=== PATIENT | male | born 1940 | race Caucasian/White ===

== ENCOUNTER 2019-01-20 18:21 | Observation (INO) ==
[2019-01-20 19:20] LABS: ALLEN TEST YES; BE 0.2 mmoll (-3.0-3.0); BLOOD TYPE ARTERIAL; METHB 0.9 % (0.0-1.5); O2(CT) 15.4 mL/dL (15.0-23.0); O2HB 92.5 % (95.0-99.0); PCO2(98.6) 29 mmHg (35-45); PO2(98.6) 86 mmHg (60-100); SAMPLE BLOOD; SAO2 98.3 % (95.0-100.0); THB 11.8 g/dL (11.5-17.4)
[2019-01-20 19:21] LABS: MODALITY ROOM AIR
--- NOTE | 2019-01-20 19:45 | Diag Imaging Result Doc PS360 ---
CHEST-PORTABLE - 01/20/2019 INDICATION: ams COMPARISON: 12/17/2017 FINDINGS: Stable sternotomy wires. Stable calcified granuloma in the right lung. The lungs are clear. Heart size is normal. No pneumothorax or pleural effusion. IMPRESSION: Negative exam. Electronically signed by Rex Nance 01/20/2019 7:42 PM
--- NOTE | 2019-01-20 19:48 | Diag Imaging Result Doc PS360 ---
CT HEAD W/O CONTRAST - 01/20/2019 INDICATION: Head injury COMPARISON: 08/10/2013 FINDINGS: There is a new chronic lacunar in the right periventricular cerebral white matter. The ventricles and sulci are normal in size and contour. No intracranial mass or hemorrhage. The skull is intact. The sinuses, mastoids, and middle ears are clear. IMPRESSION: Increasing mild chronic stroke burden. No acute process. This exam was performed using automated exposure control, adjustment of mA or kV according to patient size, and/or use of iterative reconstruction technique Electronically signed by Rex Nance 01/20/2019 7:46 PM
[2019-01-20] MEDS ORDERED: NS 1,000 ML IV ONE (20:14)
[2019-01-20 20:49] LABS: URINE SOURCE CLEAN CATCH
[2019-01-20 20:57] LABS: BILIRUBIN URINE NEGATIVE (NEGATIVE); BLOOD URINE NEGATIVE (NEGATIVE); COLOR YELLOW; GLUCOSE URINE NEGATIVE (NEGATIVE); KETONE URINE TRACE mg/dL (NEGATIVE); LEUKOCYTES URINE NEGATIVE (NEGATIVE); NITRITE URINE NEGATIVE (NEGATIVE); PH URINE 8.5; PROTEIN URINE 50 mg/dL (NEGATIVE); SP GRAVITY URINE 1.017; TURBIDITY URINE HAZY (CLEAR); UROBILINOGEN URINE NORMAL (NORMAL)
[2019-01-20 20:58] LABS: BASO# 0.06 X1000 (0.0-0.2); BASO% 0.7 % (0.0-0.8); EOS# 0.43 X1000 (0.0-0.7); EOS% 5.3 % (0.0-10.0); HEMATOCRIT 38.4 % (42.0-52.0); HEMOGLOBIN 12.5 g/dL (14.0-18.0); LYMPH# 1.48 X1000 (1.2-3.4); LYMPH% 18.3 % (20.5-51.1); MCH 28.3 PG (27-31); MCHC 32.6 g/dL (33-37); MCV 86.9 FL (81-99); MONO# 0.67 X1000 (0.11-0.59); MONO% 8.3 % (1.7-9.3); MPV 10.9 FL (7.4-10.4); NEUT# 5.43 X1000 (1.4-6.5); NEUT% 67.4 % (42.2-75.2); PLT 335 X1000 (130-400); RBC 4.42 XMIL (4.7-6.1); RDW 14.2 % (11.5-14.5); UR EPITHELIAL CELLS <10 /HPF (<10); URINE BACTERIA NEGATIVE /HPF; URINE RBC <10 /HPF (<10); URINE WBC <10 /HPF (<10); WBC 8.07 X1000 (4.8-10.8)
[2019-01-20 21:02] LABS: INR 0.94; PROTIME 13.3 Seconds (11.0-16.0)
[2019-01-20 21:03] LABS: PTT 35.7 Seconds (22.3-41.8)
[2019-01-20 21:29] LABS: AGAP 15; ALBUMIN 4.3 g/dL (3.5-5.0); ALKALINE PHOSPHATASE 128 U/L (32-122); BUN 15 mg/dL (8-22); CALCIUM 9.8 mg/dL (8.8-10.2); CHLORIDE 101 mmol/L (98-107); CK PROFILE 110 U/L (24-204); COSMO 281; CREATININE 0.8 mg/dL (0.7-1.2); ESTIMATED GFR > 60; GLUCOSE 118 mg/dL (70-104); GOT 28 U/L (10-34); GPT 17 U/L (10-44); POTASSIUM 3.8 mmol/L (3.5-5.1); SODIUM 140 mmol/L (136-145); TCO2 24 mmol/L (25-35); TOTAL BILIRUBIN 0.34 mg/dL (0.20-1.00); TOTAL PROTEIN 8.6 g/dL (6.3-8.3)
[2019-01-20 22:29] LABS: UR AMPHETAMINES QUAL NONE DETECTED (NONE DETECT); UR BARBITUATES QUAL NONE DETECTED (NONE DETECT); UR BENZODIAZEPIN QUAL NONE DETECTED (NONE DETECT); UR CANNABINOIDS QUAL NONE DETECTED (NONE DETECT); UR COCAINE QUAL NONE DETECTED (NONE DETECT); UR METHADONE QUAL NONE DETECTED (NONE DETECT); UR OPIATES QUAL NONE DETECTED (NONE DETECT); UR OXYCODONE QUAL NONE DETECTED (NONE DETECT); UR PCP QUAL NONE DETECTED (NONE DETECT)
--- NOTE | 2019-01-20 23:37 | PROVIDER DOCUMENTATION ---
This chart was entered by Julieta Castle Scribe, acting as scribe for Kely Fox MD. HPI-General Adult - General Chief Complaint: Altered Mental Status Stated Complaint: POSS STROKE Time Seen by Provider: 01/20/19 18:42 Source: patient Allergies/Adverse Reactions: Patient Allergies Allergy/AdvReac Type Severity Reaction Status Date / Time codeine AdvReac Severe VOMITING Verified 05/06/18 02:49 lisinopril AdvReac Severe lowers BP Verified 05/06/18 02:49 to low Home Medications: Home Medication List Medication Instructions Recorded Confirmed Last Taken Type Cyanocobalamin (Vitamin B-12) 1,000 mcg PO DAILY 08/10/13 05/06/18 05/05/18 H istory [Vitamin B-12] Cyclobenzaprine HCl [Flexeril] 10 mg PO TID PRN 08/10/13 05/06/18 05/05/18 History Digoxin 0.25 mg PO DAILY 08/10/13 05/06/18 05/05/18 History Gabapentin 1,200 mg PO BID 08/10/13 05/06/18 05/05/18 History Levothyroxine [Synthroid] 175 microgm PO DAILY 08/10/13 05/06/18 05/05/18 History Omeprazole 40 mg PO BID 08/10/13 05/06/18 05/05/18 History ATORVAstatin [Lipitor] 40 mg PO QHS 09/06/17 05/06/18 05/05/18 History Albuterol Sulfate [Proair Hfa] 1 puff INH DIRECTED 09/06/17 02/14/18 09/06/17 History Amlodipine Besylate 10 mg PO DAILY 09/06/17 05/06/18 05/05/18 History Aspirin [Aspir-Low] 81 mg PO DAILY 09/06/17 05/06/18 05/05/18 History Carvedilol [Coreg] 6.25 mg PO BID 09/06/17 05/06/18 05/05/18 History Furosemide [Lasix] 40 mg PO DAILY 09/06/17 05/06/18 05/05/18 History Glipizide 10 mg PO BID 09/06/17 05/06/18 05/05/18 History Iron 45 mg PO DAILY 09/06/17 05/06/18 05/05/18 History Isosorbide Dinitrate 20 mg PO BID 09/06/17 05/06/18 05/05/18 History Metformin HCl 1,000 mg PO BID 09/06/17 05/06/18 05/05/18 History Multivitamin [Multivitamins] 1 each PO DAILY 09/06/17 05/06/18 05/05/18 History Sennosides/Docusate Sodium 1 each PO DIRECTED PRN 09/06/17 05/06/18 05/05/18 History [Docusate Sodium-Senna Tablet] Apixaban [Eliquis] 5 mg PO BID #180 tab 09/10/17 05/06/18 05/05/18 Rx Clonazepam 0.5 mg PO QHS #30 tab 09/10/17 05/06/18 05/05/18 Rx Fluticasone/Vilanterol [Breo 1 puff INH DAILY 12/16/17 05/06/18 05/05/18 History Ellipta 100-25 Mcg INH] Albuterol 2.5MG/Ipratrop 0.5MG 3 ml INH RTQ4H PRN #30 neb 12/19/17 02/14/18 Unknown Rx [Duoneb (A & A)] Ascorbic Acid [Vitamin C] 1 tab PO DAILY 05/06/18 05/06/18 05/05/18 History Buspirone [Buspar] 1 tab PO BID 05/06/18 05/06/18 05/05/18 History Venlafaxine HCl [Venlafaxine HCl 300 mg PO DAILY 05/06/18 05/06/18 05/05/18 History ER] Hydrocodone/Acetaminophen [[place] 1 ea PO Q6H #30 tab 05/08/18 Unknown Rx 7.5-325 Tablet] Lidocaine 5% Patch [Lidoderm] 1 ea TOP DAILY #15 patch 05/08/18 Unknown Rx - History of Present Illness -Gen Adult Nature of Presenting Problems: pt is a 78 yr old male presenting with , reports 1 week hx of pt cough, congestion, AMS, hallucinating. pt reports he sees bugs crawling under his skin. reports pt has picked and clawed at skin causing multiple open sores to left forearm and hand, wound covered PATIENT ACCESS COORDINATOR by , she reports they have been cleaning and covering wounds so pt would stop scratching them open. pt hx of CVA, CABG. 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 pt currently treating wound to left great toe x 1 month, slow healing wound. Location of Pain/Injury: reports: upper extremity (right forearm), feet (left great toe) Pain Radiation: reports: no radiation Severity: reports: moderate Onset/Duration: reports: 1 week ago Timing: reports: changing over time, getting worse Context/Activities at Onset: reports: light activity Modifying Factors: improves with: other (bandages applied to prevent pt from scratching wounds open) Associated Symptoms: reports: other (skin sores, hallucinations). denies: fever/chills, genitourinary problems Similar Symptoms Previously?: No Recently seen or treated by another doctor?: No Review of Systems - Adult - REVIEW OF SYSTEMS - ADULT Constitutional: denies: chills, fever, fatique Eyes: reports: no symptoms reported Ears, Nose, Mouth & Throat: denies: ear pain, sinus problem, throat pain Cardiovascular: denies: chest pain, palpitations, syncope Respiratory: reports: cough. denies: dyspnea on exertion, shortness of breath, wheezing Gastrointestinal: denies: abdominal pain, diarrhea, nausea, vomiting Genitourinary: reports: frequent UTI's Musculoskeletal: denies: back pain, joint pain, neck pain Integumentary: reports: skin sores/ulcer Neurological: denies: dizziness/vertigo, headache/migraines Psychiatric: reports: other (hallucinations) Endocrine: reports: no symptoms reported Hematologic/Lymphatic: reports: no symptoms reported Allergic/Immunologic: reports: no symptoms reported All Other Systems: Reviewed and Negative Past History - Adult - PAST MEDICAL HISTORY-ADULT Review of Records: reports: Old Records Reviewed, Nursing Assessment Review, Medications Reviewed, Social history reviewed & non-contributory. Major Childhood Illnesses: reports: denies history Cardiovascular: reports: A-Fib, CAD, HTN, ID Respiratory: reports: denies history Gastrointestinal: reports: GERD Obstetrical/Gynecological: reports: denies history Genitourinary: reports: denies history Musculoskeletal: reports: chronic pain Neurological: reports: CVA, other (Neuropathy) Endocrine/Immune: reports: anemia, Diabetes, thyroid disorder (Hypo) Other Conditions: reports: denies history - PRIOR SURGERIES/PROCEDURES Surgical/Procedure History: reports: appendectomy, CABG, cardiac stent, back/neck - PRIOR HOSPITALIZATIONS Prior Hospitalizations: reports: for similar symptoms - IMMUNIZATION STATUS Childhood Immunizations: See Nurse Assessment Flu Vaccine: See Nurse Assessment - FAMILY HISTORY Family History: reviewed, not pertinent - SOCIAL HISTORY Smoking: cigarettes Provider spent 3-5 mins advising pt. on dangers of tobacco.: Discussed manners to quit use, and f/u contacts for add'l counseling. Living Situation: family Physical Exam-General - PHYSICAL EXAM-ADULT Initial Vital Signs Reviewed: Yes - CONSTITUTIONAL General Appearance: alert, no apparent distress - EYES Eyes: PERRL/EOMI - HEAD, EARS, NOSE, MOUTH & THROAT HENMT: normocephalic/atraumatic, moist mucous membranes, normal ENT inspection - NECK Neck: non-tender, full range of motion, supple, normal inspection - RESPIRATORY Respiratory: chest non-tender, no pleuratic chest pain, no respiratory distress, no accessory muscle use, crackles (left base) - CARDIOVASCULAR Cardiovascular: normal peripheral pulses, regular rate, rhythm, no edema - GASTROINTESTINAL (ABDOMEN) Abdominal Exam: normal bowel sounds, non tender, soft - LYMPHATIC Lymphatic: no adenopathy - MUSCULOSKELETAL Back Exam: normal inspection, no CVA tenderness, no vertebral tenderness Extremity: normal range of motion, no pedal edema, no calf tenderness, normal capillary refill Peripheral Pulses: radial (R): 2+, radial (L): 2+ - SKIN Integumentary: normal color, normal turgor, warm/dry - PSYCHIATRIC Psych/Mental Status: paranoid Progress - PLAN OF CARE/RESULTS Progress/Plan/Lab Results: Vital Signs - 8 hr 01/20/19 18:36 Temperature 97.4 F L Pulse Rate 73 Respiratory Rate 18 Blood Pressure 210/82 O2 Sat by Pulse Oximetry 98 Orders Category Date Time Status Cardiac Monitoring DIRECTED Care 01/20/19 18:56 Active Finger Stick Blood Sugar (ED) DIRECTED Care 01/20/19 18:56 Active Oxygen Therapy- ED Nursing DIRECTED Care 01/20/19 18:56 Active Saline Loc NOW Care 01/20/19 18:56 Active CHEST-PORTABLE [RAD] Stat Exams 01/20/19 18:[address] HEAD W/O CONTRAST [CT] Stat Exams 01/20/19 18:56 Ordered ABG [RESP] Routine Lab 01/20/19 18:56 Ordered CBC WITH ELECTRONIC DIFF [HEME] Stat Lab 01/20/19 18:56 Uncollected CK PROFILE [SP CHEM] Stat Lab 01/20/19 18:56 Uncollected COMPREHENSIVE METABOLIC PANEL [CHEM] Stat Lab 01/20/19 18:56 Uncollected LACTATE, PLASMA [CHEM] Stat Lab 01/20/19 18:56 Uncollected PROTIME WITH INR [COAG] Stat Lab 01/20/19 18:56 Uncollected PTT [COAG] Stat Lab 01/20/19 18:56 Uncollected TROPONIN T Stat Lab 01/20/19 18:56 Uncollected URINALYSIS [URINALYSIS] Stat Lab 01/20/19 18:56 Uncollected Altered Mental Status Stat Oth 01/20/19 18:55 Ordered EKG [EKG] Stat Ther 01/20/19 18:56 Ordered Result Diagrams: 01/20/19 20:31 01/20/19 20:31 - EKG 1 Time of EKG reading by physician:: 18:50 EKG Read and Signed by:: Kely Fox EKG Interpretation (*Must complete 3 of following elements*): Abnormal (septal infarct-age undetermined) Rate: 95 Rhythm: sinus rhythm with premature supraventricular complexes [place]: normal QRS: normal [place] Interval: normal ST Wave: normal - XRAY 1 XRAY Study: Chest Impression: Normal ( CHEST-PORTABLE - 01/20/2019 INDICATION: ams COMPARISON: 12/17/2017 FINDINGS: Stable sternotomy wires. Stable calcified granuloma in the right lung. The lungs are clear. Heart size is normal. No pneumothorax or pleural effusion. IMPRESSION: Negative exam. Electronically signed by Rex Nance 01/20/2019 7:42 PM 01/20/191941 Interpreting Physician: Rex Nance MD Dictated Date/Time: 01/20/191941) - CT/MRI 1 CT Study: Head Impression: Abnormal ( CT HEAD W/O CONTRAST - 01/20/2019 INDICATION: Head injury COMPARISON: 08/10/2013 FINDINGS: There is a new chronic lacunar in the right periventricular cerebral white matter. The ventricles and sulci are normal in size and contour. No intracranial mass or hemorrhage. The skull is intact. The sinuses, mastoids, and middle ears are clear. IMPRESSION: Increasing mild chronic stroke burden. No acute process. This exam was performed using automated exposure control, adjustment of mA or kV according to patient size, and/or use of iterative reconstruction technique Electronically signed by Rex Nance 01/20/2019 7:46 PM 01/20/191945 Interpreting Physician: Rex Nance MD Dictated Date/Time: 01/20/191944 cc: Kely Fox MD;) Comparison with other Films: changes noted (08/10/13) - CONSULTS/PCP/HOSPITALIST Notification #1 *Consult/PCP/Hospitalist*: dr. Goff Time Discussed: 23:35 Consult Disposition: Will see in ED Departure - Departure Date of Disposition Decision: 01/20/19 Time of Disposition Decision: 23:35 DIAGNOSIS: Visual hallucination Disposition: ADMITTED INPATIENT 09 Certified Medical Emergency: Emergent Condition: Stable - Critical Care Note This patient required my direct & personal management of CC.: No Attestation - Physician/ SHAKEEL Attestation The physician spent face to face time with patient:: Yes Advanced Practice Provider documentation review:: Supervising physician onsite and consulted in the evaluation and care of this patient. The physician did have a face to face encounter with the patient. This chart was documented by the indicated scribe, (Julieta Castle, Aline) and accurately reflects the services I performed and decisions made by me, Kely Fox MD, as attested by the provider's signature.
[2019-01-20 23:50] LABS: ACETAMINOPHEN < 1.2 ug/mL (10-30); SALICYLATES < 3.00 mg/dL (3-10)
--- NOTE | 2019-01-21 01:36 | HISTORY AND PHYSICAL ---
PRIMARY CARE PHYSICIAN: At the [facility]. CHIEF COMPLAINT: Having visual hallucinations, seeing bugs crawling. HISTORY OF PRESENTING ILLNESS: A 78-year-old male with a history of CVA, hypertension, coronary artery disease, diabetes mellitus type 2, depression, who had presented to emergency department with several days history of seeing bugs crawling on himself and becoming more confused. As per family, his symptoms were worsening. The patient was evaluated in the emergency department, he had imaging done, which did show on CAT scan an increase in mild chronic stroke burden. Due to these presenting symptoms it was thought that he would need admission for further management. At the time of my examination, patient denied any headache, fever, chills, chest pain, shortness of breath, hemoptysis, or weight changes. Just states that he is seeing things crawling on himself. PAST MEDICAL HISTORY: Includes coronary artery disease, diabetes mellitus type 2, hypertension, hyperlipidemia, COPD, depression, CVA. PAST SURGICAL HISTORY: Coronary bypass, back surgery, neck surgery, appendectomy, carotid endarterectomy, right 5th toe amputation. ALLERGIES: Lisinopril, codeine. CURRENT MEDICATIONS: Duo nebs q.4 hours, Norvasc 10 mg p.o. daily, Eliquis 5 mg p.o. b.i.d., aspirin 81 mg p.o. daily, atorvastatin 40 mg p.o. at bedtime, buspirone 10 mg p.o. b.i.d., Coreg 6.25 mg p.o. b.i.d., Klonopin 0.5 mg p.o. at bedtime, digoxin 0.25 mg p.o. daily, Lasix 40 mg p.o. daily, gabapentin 1200 mg p.o. b.i.d., glipizide 10 mg p.o. b.i.d., isosorbide dinitrate 20 mg p.o. b.i.d., levothyroxine 175 mcg p.o. daily, metformin 1000 mg p.o. b.i.d., omeprazole 40 mg p.o. b.i.d., venlafaxine 300 mg p.o. daily. SOCIAL HISTORY: A [id number] history of smoking. Denies any history of alcohol or illicit drug use. FAMILY HISTORY: Positive for coronary artery disease in father. REVIEW OF SYSTEMS: Fourteen point review of system is as in HPI. Other systems negative. PHYSICAL EXAMINATION: GENERAL: Cooperative, friendly male, he is resting more comfortably now. VITAL SIGNS: Temperature 97.4 degrees, pulse 73, respiration 18, blood pressure 210/82. HEENT: Atraumatic, normocephalic. Extraocular movements intact. PERRLA. NECK: No masses. CHEST: Clear to auscultation. CARDIOVASCULAR: Regular rate and rhythm. ABDOMEN: Soft. Positive bowel sounds. EXTREMITIES: No edema. NEUROLOGIC: He is awake, alert, oriented x2. Strength 5/5 all extremities. Speech is intact. GENITOURINARY: No bladder distention. SKIN: Warm. LABORATORIES AND STUDIES: WBCs 8.07, hemoglobin 12.5, hematocrit 38.4, platelets 335,000. Sodium 140, potassium 3.8, chloride 101, CO2 is 24, BUN is 15, creatinine 0.8. Glucose 118. UA is negative. Toxicology screen is negative. ASSESSMENT: A 78-year-old male with a history of a cerebrovascular accident, diabetes mellitus type 2, hypertension, hyperlipidemia, chronic obstructive pulmonary disease, and depression, who had presented to the emergency department with several days history of having visual hallucination, especially noticing bugs crawling underneath his skin. He was evaluated in the emergency department, and due to his presenting symptoms, he will need admission for further evaluation and management. 1. Altered mental status, multifactorial. 2. Visual hallucinations in setting of previous cerebrovascular accident and recent CT findings that we will need to rule out cerebrovascular accident, recurrent. 3. Depression. 4. Dementia. 5. Diabetes mellitus type 2. 6. Hypertension. PLAN: 1. We will admit patient to medical floor with telemetry. 2. We will continue with neuro checks. 3. We will schedule patient for MRI of the brain. 4. We will restart other home medications. 5. We will monitor blood glucose closely. 6. We will monitor blood pressure and allow permissive hypertension. 7. Patient is on Eliquis and this will suffice for DVT prophylaxis. 8. We will continue to follow and reassess. Make further recommendation based on patient's clinical course. cc: MD YANY Persaud
[2019-01-21] MEDS ORDERED: NS 1,000 ML IV SCH (02:22)
[2019-01-21] MEDS: DUONEB (A & A) INH PRN ×3 (03:40→11:24)
[2019-01-21] MEDS: HUMULIN R SUBQ SCH ×2 (06:13→12:22)
--- NOTE | 2019-01-21 07:19 | EKG Report ---
Test Performed on : 01/20/2019 6:49:13 PM Test Reason : ams Blood Pressure : / mmHG Vent. Rate : 095 BPM Atrial Rate : 095 BPM P-R Int : 190 ms QRS Dur : 090 ms QT Int : 352 ms P-R-T Axes : 082 -07 099 degrees QTc Int : 442 ms Sinus rhythm. with premature supraventricular complexes. Septal infarct , age undetermined Abnormal ECG When compared with ECG of 06-MAY-2018 06:08, Sinus rhythm. has replaced Atrial fibrillation. Left bundle branch block is no longer present Septal infarct is now present Unconfirmed Result
[2019-01-21] MEDS ORDERED: ISORDIL PO SCH (09:00)
[2019-01-21] MEDS ORDERED: CENTRUM SILVER PO SCH (09:00)
[2019-01-21] MEDS ORDERED: PERICOLACE PO PRN (10:40)
--- NOTE | 2019-01-21 11:07 | PROGRESS NOTE ---
DATE: 01/21/2019 Mr. Vo presented on 01/21/2019 in the morning. He was seen at the [facility]. He was having visual hallucinations, seeing bugs crawling on his arms and picking at them. A 78- year-old with a history of CVA, hypertension, coronary artery disease, diabetes mellitus type 2, depression. Presented to the emergency department with a several day history of seeing bugs crawling on himself, becoming more confused. As per family, his symptoms were worsening. Evaluated in the emergency room. Imaging done, CAT scan which showed an increase in microvascular chronic stroke burden. Due to the presenting symptoms, he was admitted. states he is a little better, although he still picking at his arms and rubbing his arms. He has several sores at the back of his neck and on his arm where he has picked. PAST MEDICAL HISTORY: History of coronary artery disease, history of diabetes mellitus type 2, history of hypertension, history of hyperlipidemia, COPD, depression, and CVA. PAST SURGICAL HISTORY: Coronary artery disease, back surgery, neck surgery, appendectomy, carotid endarterectomy, right fifth toe amputation. ALLERGIES: Lisinopril and clonidine. ADMISSION DIAGNOSES: 1. Altered mental status, multifactorial. 2. He has a history of cerebrovascular accident. 3. Underlying diabetes. 4. Hypertension. 5. Hyperlipidemia. 6. Chronic obstructive pulmonary disease. 7. Depression. 8. Having visual hallucinations. He is sitting up at the edge of the bed. states he is a little better but still picking at his arms. MEDICATIONS: Looking at his medications at home, he was on Lipitor 40 mg a day, DuoNebs, amlodipine 10 mg a day, Eliquis 5 mg b.i.d., ascorbic acid 1 a day, aspirin 81 mg a day, BuSpar 1 p.o. b.i.d., Coreg 6.25 mg b.i.d., Klonopin 0.5 mg at bedtime, vitamin B12 with 1000 mg a day, Flexeril 10 mg t.i.d. p.r.n., digoxin 0.25 mg daily, Breo Ellipta 100/25 one puff daily, Lasix 40 mg a day, gabapentin which he takes 1200 mg p.o. b.i.d., glipizide 10 mg b.i.d., and hydrocodone 7.5 mg/325 one q.6 hours, iron 45 mg a day, isosorbide dinitrate 20 mg b.i.d., Synthroid 175 mcg a day, Lidoderm patch 5% I think once a day, metformin 1000 mg a day, multivitamin 1 a day, omeprazole 40 mg b.i.d., docusate which he takes as needed, and Effexor which he takes 300 mg extended release daily. REVIEW OF ORDERS: Looking at his orders, at the present time, they got him off of almost everything. PHYSICAL EXAMINATION: Temperature 97.7 degrees, pulse of 75, respirations 16, blood pressure 189/99. Pupils are equal and round. Lungs are clear in all lung murphy. Cardiovascular Examination: Regular rhythm and rate without murmur or S3. Abdomen is soft. Skin is warm and dry. ASSESSMENT AND PLAN: I will go through his medications. We will see what we can do without. I will see if I can put him on a lower dose of his Neurontin. Reviewed his lab. I do not see anything significantly changed. I will put him back on a little lower dose of Neurontin, maybe put him back on his previous 1200 mg twice a day. cc: Stephon Carlos MD
[2019-01-21 11:35] VITALS: BP 152/66
--- NOTE | 2019-01-21 11:54 | DISCHARGE SUMMARY ---
ADMISSION DATE: 01/21/2019 DISCHARGE DATE: 01/21/2019 HOSPITAL COURSE: The patient was admitted critical care transport nurse 01/21/2019. He was seen by Loretta Meza at the [facility]. He came in with visual hallucinations, seeing bugs crawling on his arms, picking at his arms and the back of his neck. A 78-year-old with CVA, hypertension, coronary artery disease, diabetes mellitus type 2, depression, who presented to emergency department with several day history of seeing bugs crawling on his arms and neck and per family it seemed to be getting worse. Wanted to come to the emergency room. CAT scan did not really show any acute change. He has chronic microvascular disease. No fever or chills. No shortness of breath. No hemoptysis. No weight change. PAST MEDICAL HISTORY: 1. Coronary artery disease. 2. Diabetes mellitus type 2. 3. Hypertension. 4. Hyperlipidemia. 5. COPD. 6. Depression. 7. CVA. PAST SURGICAL HISTORY: 1. Status post coronary artery disease. 2. Back surgery. 3. Neck surgery. 4. Appendectomy. 5. Carotid endarterectomy. 6. Right fifth toe amputation. The patient was admitted for visual hallucinations. LAB: Lab work was performed and really unremarkable. Hematocrit 38 hemoglobin 12, normal MCV, white count 8700, platelet count 335,000. Electrolytes unremarkable. Blood sugars look good. Troponin less than 0.01. X-RAY: A CT of the head: Increased mild chronic stroke burden. No acute process. There is new chronic lacunar in the right periventricular cerebral white matter. The ventricles and sulci are normal in size and contour. No acute process. DISPOSITION: The patient did feel a little bit better. I went through his medication list. He is not taking the [place] anymore. I thought we would stop the Flexeril. He has been on the gabapentin and the others for a long time. So, plan to discharge him on: Norvasc 10 mg a day. I think he has stopped the Eliquis, so we will stop the Eliquis. Vitamin C 500 mg daily, aspirin 81 mg a day, BuSpar 10 mg b.i.d., Coreg 6.25 mg b.i.d., Klonopin 0.5 mg at bedtime, vitamin B 12 1000 mg p.o. daily, digoxin 250 mcg daily, ferrous sulfate 325 mg a day, Breo Ellipta I think he takes 1 puff daily, Lasix 40 mg a day, Neurontin 1200 mg b.i.d., Glucotrol 10 mg b.i.d., Isordil 20 mg b.i.d., Synthroid 175 mcg a day, Glucophage 1000 mg b.i.d., Centrum Silver 1 a day, Prilosec 40 mg b.i.d., Jennifer-Colace 1 daily, and Effexor 300 mg daily. cc: Stephon Carlos MD
[2019-01-21] MEDS ORDERED: GLUCOTROL PO SCH (17:00)
[2019-01-21] MEDS ORDERED: GLUCOPHAGE PO SCH (17:00)
[2019-01-21] MEDS ORDERED: KLONOPIN PO SCH (21:00)
[2019-01-21] MEDS ORDERED: NEURONTIN PO SCH (21:00)
[2019-01-21] MEDS ORDERED: PRILOSEC PO SCH (21:00)
[2019-01-21] MEDS ORDERED: COREG PO SCH (21:00)
[2019-01-21] MEDS ORDERED: LIPITOR PO SCH (21:00)
[2019-01-21] MEDS ORDERED: BUSPAR PO SCH (21:00)
[2019-01-21] MEDS ORDERED: ELIQUIS PO SCH (21:00)
[2019-01-22] MEDS ORDERED: SYNTHROID PO SCH (07:00)
[2019-01-22] MEDS ORDERED: BREO ELLIPTA 100/25 MCG INH INH SCH (07:30)
[2019-01-22] MEDS ORDERED: LASIX PO SCH (09:00)
[2019-01-22] MEDS ORDERED: LANOXIN PO SCH (09:00)
[2019-01-22] MEDS ORDERED: VITAMIN B-12 PO SCH (09:00)
[2019-01-22] MEDS ORDERED: ASPIRIN EC PO SCH (09:00)
[2019-01-22] MEDS ORDERED: NORVASC PO SCH (09:00)
[2019-01-22] MEDS ORDERED: EFFEXOR XR PO SCH (09:00)
[2019-01-22] MEDS ORDERED: VITAMIN C PO SCH (09:00)
[2019-01-22] MEDS ORDERED: FERROUS SULFATE PO SCH (09:00)
== END 2019-01-21 13:41 | disposition home or self-care (01) ==
LOC: ED 18:21 → INTOOBSV 18:22 → 3N 01-21 01:36 → SUATTDRO 01-21 01:36
PROVIDERS: ATTEND Emergency Medicine
CPT/HCPCS: 70450; 71010; 71045; 80053; 80101; 80196; 80301; 80307; 80320; 80324; 80329; 80345; 80346; 80353; 80358; 80361; 80365; 81001; 82003; 82055; 82140; 82550; 82805; 82948; 83605; 83992; 84484; 85025; 85610; 85730; 93005; 94640; A9270; G0431; G0434; G0479; G0480; G6038; G6039; G6040; J7030; XXXXX

== ENCOUNTER 2019-03-31 10:27 | Inpatient (IN) ==
[2019-03-31 11:01] LABS: BASO# 0.03 X1000 (0.0-0.2); BASO% 0.3 % (0.0-0.8); EOS# 0.39 X1000 (0.0-0.7); EOS% 3.3 % (0.0-10.0); HEMATOCRIT 32.1 % (42.0-52.0); HEMOGLOBIN 10.3 g/dL (14.0-18.0); IMM GRAN# 0.02 X1000 (0.0-0.04); IMM GRAN% 0.2 % (0.0-0.5); LYMPH# 1.04 X1000 (1.2-3.4); LYMPH% 8.9 % (20.5-51.1); MCH 29.3 PG (27-31); MCHC 32.1 g/dL (33-37); MCV 91.2 FL (81-99); MONO# 1.43 X1000 (0.11-0.59); MONO% 12.2 % (1.7-9.3); NEUT# 8.82 X1000 (1.4-6.5); NEUT% 75.1 % (42.2-75.2); PLT 304 X1000 (130-400); RBC 3.52 XMIL (4.7-6.1); RDW 14.1 % (11.5-14.5); WBC 11.73 X1000 (4.8-10.8)
[2019-03-31 11:07] LABS: INR 1.08; PROTIME 14.1 Seconds (11.0-16.0)
[2019-03-31 11:08] LABS: PTT 36.6 Seconds (22.3-41.8)
--- NOTE | 2019-03-31 11:11 | Diag Imaging Result Doc PS360 ---
CHEST-1 VIEW - 03/31/2019 INDICATION: R/O PNEUMONIA COMPARISON: 01/20/2019 FINDINGS: There is a skin fold over the right chest wall. Stable CABG changes. The lungs are clear. Heart size is normal. No pneumothorax or pleural effusion. IMPRESSION: Negative exam. Electronically signed by Rex Nance 03/31/2019 11:09 AM
[2019-03-31 11:21] LABS: AGAP 14; ALB/GLOB RATIO 1.3; ALBUMIN 4.1 g/dL (3.5-5.0); ALKALINE PHOSPHATASE 105 U/L (32-122); BUN 25 mg/dL (8-22); CALCIUM 8.9 mg/dL (8.8-10.2); CHLORIDE 100 mmol/L (98-107); CK PROFILE 54 U/L (24-204); COSMO 279; CREATININE 0.9 mg/dL (0.7-1.2); ESTIMATED GFR > 60; GLUCOSE 116 mg/dL (70-104); GOT 23 U/L (10-34); GPT 14 U/L (10-44); POTASSIUM 4.8 mmol/L (3.5-5.1); SODIUM 137 mmol/L (136-145); TCO2 23 mmol/L (25-35); TOTAL BILIRUBIN 0.26 mg/dL (0.20-1.00); TOTAL PROTEIN 7.2 g/dL (6.3-8.3)
[2019-03-31 11:47] LABS: URINE SOURCE CLEAN CATCH
[2019-03-31 11:51] LABS: BILIRUBIN URINE NEGATIVE (NEGATIVE); BLOOD URINE NEGATIVE (NEGATIVE); COLOR YELLOW; GLUCOSE URINE NEGATIVE (NEGATIVE); KETONE URINE NEGATIVE (NEGATIVE); LEUKOCYTES URINE NEGATIVE (NEGATIVE); NITRITE URINE NEGATIVE (NEGATIVE); PROTEIN URINE NEGATIVE (NEGATIVE); TURBIDITY URINE CLEAR (CLEAR); UROBILINOGEN URINE NORMAL (NORMAL)
[2019-03-31 11:52] LABS: UR EPITHELIAL CELLS <10 /HPF (<10); URINE BACTERIA NEGATIVE /HPF; URINE RBC <10 /HPF (<10); URINE WBC <10 /HPF (<10)
--- NOTE | 2019-03-31 12:55 | EKG Report ---
Test Performed on : 03/31/2019 10:36:06 AM Test Reason : AFIB Blood Pressure : / mmHG Vent. Rate : 109 BPM Atrial Rate : 102 BPM P-R Int : 000 ms QRS Dur : 128 ms QT Int : 360 ms P-R-T Axes : 000 -08 111 degrees QTc Int : 484 ms Atrial fibrillation. with rapid ventricular response. Left bundle branch block Abnormal ECG When compared with ECG of 20-JAN-2019 18:49, (Unconfirmed) Atrial fibrillation. has replaced Sinus rhythm. Left bundle branch block is now present Criteria for Septal infarct are no longer present Unconfirmed Result
[2019-03-31] MEDS ORDERED: DECADRON IV ONE (14:00)
[2019-03-31] MEDS ORDERED: ROCEPHIN 1 GM in NS 50 ML IV ONE (14:00)
[2019-03-31] MEDS ORDERED: NS 1,000 ML IV ONE (14:01)
[2019-03-31] MEDS ORDERED: DUONEB (A & A) INH ONE (14:10)
[2019-03-31] MEDS ORDERED: PULMICORT INH ONE (14:10)
[2019-03-31 14:38] LABS: ALLEN TEST NO; BE 1.8 mmoll (-3.0-3.0); BLOOD TYPE ARTERIAL; HCO3-(ACT) 26.3 mmoll (20.0-26.0); METHB 0.7 % (0.0-1.5); O2(CT) 12.9 mL/dL (15.0-23.0); O2HB 94.1 % (95.0-99.0); PCO2(98.6) 36 mmHg (35-45); PO2(98.6) 74 mmHg (60-100); SAMPLE BLOOD; SAO2 97.9 % (95.0-100.0); THB 9.7 g/dL (11.5-17.4); pH(98.6) 7.46 (7.35-7.45)
[2019-03-31 14:39] LABS: MODALITY CANNULA
--- NOTE | 2019-03-31 15:01 | PROVIDER DOCUMENTATION ---
This chart was entered by Yara Pickens Scribe, acting as scribe for Raven Leone MD. HPI-Respiratory General - General Chief Complaint: SEPSIS ALERT - D Stated Complaint: POSS PNEUMONIA - DR SENT Time Seen by Provider: 03/31/19 10:50 Source: patient, family, RN/MD (spoke with dr ryan) Allergies/Adverse Reactions: Patient Allergies Allergy/AdvReac Type Severity Reaction Status Date / Time codeine AdvReac Severe VOMITING Verified 03/31/19 10:57 lisinopril AdvReac Severe lowers BP Verified 03/31/19 10:57 to low pramipexole [From Mirapex] AdvReac Unknown Verified 03/31/19 10:57 Home Medications: Home Medication List Medication Instructions Recorded Confirmed Last Taken Type Cyanocobalamin (Vitamin B-12) 1,000 mcg PO DAILY 08/10/13 03/31/19 03/31/19 08:00 History [Vitamin B-12] Digoxin 0.125 mg PO DAILY 08/10/13 03/31/19 03/31/19 08:00 History Gabapentin 1,200 mg PO BID 08/10/13 03/31/19 03/31/19 08:00 History Levothyroxine [Synthroid] 175 microgm PO DAILY 08/10/13 03/31/19 03/31/19 08:00 History Omeprazole 40 mg PO BID 08/10/13 03/31/19 03/31/19 08:00 History ATORVAstatin [Lipitor] 40 mg PO QHS 09/06/17 03/31/19 03/30/19 20:00 History Albuterol Sulfate [Proair Hfa] 1 puff INH DIRECTED 09/06/17 01/21/19 09/06/17 History Amlodipine Besylate 10 mg PO DAILY 09/06/17 03/31/19 03/30/19 20:00 History Aspirin [Aspir-Low] 81 mg PO DAILY 09/06/17 03/31/19 03/31/19 08:00 History Carvedilol [Coreg] 6.25 mg PO BID 09/06/17 03/31/19 03/31/19 08:00 History Furosemide [Lasix] 40 mg PO DAILY 09/06/17 03/31/19 03/31/19 08:00 History Glipizide 10 mg PO BID 09/06/17 03/31/19 05/05/18 History Iron 45 mg PO DAILY 09/06/17 03/31/19 03/31/19 08:00 History Isosorbide Dinitrate 20 mg PO BID 09/06/17 03/31/19 05/05/18 History Metformin HCl 1,000 mg PO BID 09/06/17 03/31/19 03/31/19 08:00 History Multivitamin [Multivitamins] 1 each PO DAILY 09/06/17 03/31/19 03/31/19 09:00 History Clonazepam 0.5 mg PO QHS #30 tab 09/10/17 03/31/19 03/30/19 20:00 Rx Fluticasone/Vilanterol [Breo 1 puff INH DAILY 12/16/17 03/31/19 03/30/19 08:00 History Ellipta 100-25 Mcg INH] Ascorbic Acid [Vitamin C] 1 tab PO DAILY 05/06/18 03/31/19 03/31/19 08:00 History Buspirone [Buspar] 1 tab PO QAM 05/06/18 03/31/19 03/31/19 08:00 History Venlafaxine HCl [Venlafaxine HCl 300 mg PO DAILY 05/06/18 03/31/19 03/31/19 08:00 History ER] Lidocaine 5% Patch [Lidoderm] 1 ea TOP DAILY #15 patch 05/08/18 01/21/19 Unknown Rx Cyclobenzaprine [Flexeril] 10 mg PO BID 03/31/19 03/31/19 03/31/19 08:00 History - History of Present Illness-Resp Nature of Presenting Problem: 78 yom presents to the ed with c/o sob with productive cough for 1 week. pt went to dr ryan's office pcp this am and was sent to ed for possible PNA. pt on exam is mild sob, generalized bodyaches, fever and has productive cough and looks to not feel well. pt on exam has clear lungs Quality of Pain: reports: aching (bodyaches) Severity in ED: reports: mild Onset/Duration: reports: 1 week ago Timing: reports: still present, intermittent, getting worse Context: reports: recent URI Cough Quality/Degree: reports: productive cough Episode Frequency: frequent episodes Current Respiratory Medication Therapy: Initiated see nurses note Modifying Factors: improves with: nothing Associated Symptoms: reports: cough, fever/chills Similar Symptoms Previously?: Yes Recently seen or treated by another doctor?: Yes (dr tams) Review of Systems - Adult - REVIEW OF SYSTEMS - ADULT Constitutional: reports: see HPI, chills, fever Eyes: reports: no symptoms reported Ears, Nose, Mouth & Throat: reports: no symptoms reported Cardiovascular: denies: chest pain, syncope Respiratory: reports: see HPI, cough, shortness of breath. denies: wheezing Gastrointestinal: denies: abdominal pain, diarrhea, nausea, vomiting Genitourinary: reports: no symptoms reported Musculoskeletal: reports: see HPI, other (bodyaches) Integumentary: reports: no symptoms reported Neurological: denies: dizziness/vertigo, headache/migraines, slurred speech, syncope Psychiatric: reports: no symptoms reported Endocrine: reports: no symptoms reported Hematologic/Lymphatic: reports: no symptoms reported Allergic/Immunologic: reports: no symptoms reported All Other Systems: Reviewed and Negative Past History - Adult - PAST MEDICAL HISTORY-ADULT Review of Records: reports: Old Records Reviewed, Nursing Assessment Review, Medications Reviewed, Social history reviewed & non-contributory. Cardiovascular: reports: A-Fib, CAD, HTN, [place] Respiratory: reports: COPD Gastrointestinal: reports: GERD Musculoskeletal: reports: chronic pain, neck/back injury Neurological: reports: other (Neuropathy) Endocrine/Immune: reports: anemia, Diabetes, thyroid disorder (Hypo) Diabetes Type: Type 2 - PRIOR SURGERIES/PROCEDURES Surgical/Procedure History: reports: appendectomy, CABG, cardiac stent, back/neck - PRIOR HOSPITALIZATIONS Prior Hospitalizations: reports: for similar symptoms - IMMUNIZATION STATUS Childhood Immunizations: See Nurse Assessment Flu Vaccine: See Nurse Assessment - FAMILY HISTORY Family History: reviewed, not pertinent - SOCIAL HISTORY Smoking: cigarettes, greater than 1 pack/day Provider spent 3-5 mins advising pt. on dangers of tobacco.: Discussed manners to quit use, and f/u contacts for add'l counseling. Substance Use: denies Living Situation: family Physical Exam-General - PHYSICAL EXAM-ADULT Initial Vital Signs Reviewed: Yes (fever 100.1 HR-110 BP-165/102) - CONSTITUTIONAL General Appearance: alert, mild distress, other (generalized bodyaches). negative: appears well - EYES Eyes: PERRL/EOMI, pink conjunctivae - HEAD, EARS, NOSE, MOUTH & THROAT HENMT: moist mucous membranes, normal ENT inspection - NECK Neck: full range of motion, normal inspection - RESPIRATORY Respiratory: lungs clear (on exam), respiratory distress (mild), increased rate. negative: crackles, rales, rhonchi, wheezing - CARDIOVASCULAR Cardiovascular: normal peripheral pulses, tachycardia (110) - CHEST (BREASTS) Chest/Breast: deferred - GASTROINTESTINAL (ABDOMEN) Abdominal Exam: normal bowel sounds, non tender, soft - GENITOURINARY Male Genitalia: deferred Rectal Exam: deferred Hemoccult Exam: deferred - LYMPHATIC Lymphatic: no adenopathy - MUSCULOSKELETAL Back Exam: normal inspection, no CVA tenderness, no vertebral tenderness Extremity: normal range of motion, normal capillary refill - SKIN Integumentary: warm/dry, pallor - NEUROLOGIC Neurologic: grossly normal - PSYCHIATRIC Psych/Mental Status: normal mood/affect, normal thought content, normal thought process, oriented x 3, disheveled Progress - PLAN OF CARE/RESULTS Progress/Plan/Lab Results: Laboratory Results - last 24 hr 03/31/19 03/31/19 03/31/19 10:50 11:44 14:18 Specimen Type Sample Site pH pCO2 pO2 HCO3 Base Excess Oxyhemoglobin ABG O2 Sat (Calculated) ABG O2 Saturation ABG Carboxyhemoglobin ABG Methemoglobin Stephon Test A-a O2 Difference Total Hemoglobin Lactate Liter Flow Blood Gas Modality FiO2 % Plasma Lactate 2.2 2.0 Urine Source CLEAN CATCH Urine Color YELLOW Urine Turbidity CLEAR Urine pH 6.0 Ur Specific [place] 1.010 Urine Protein NEGATIVE Ur Glucose (Stick) NEGATIVE Ur Ketones (Stick) NEGATIVE Urine Blood NEGATIVE Urine Nitrite NEGATIVE Urine Bilirubin NEGATIVE Urobilinogen Dipstick NORMAL Urine Leukocytes NEGATIVE Urine WBC (Auto) <10 Urine RBC (Auto) <10 U Epithel Cells (Auto) <10 Urine Bacteria (Auto) NEGATIVE 03/31/19 03/31/19 14:29 16:50 Specimen Type ARTERIAL Sample Site R BRACHIAL pH 7.46 H pCO2 36 pO2 74 HCO3 26.3 H Base Excess 1.8 Oxyhemoglobin 94.1 L ABG O2 Sat (Calculated) 12.9 L ABG O2 Saturation 97.9 ABG Carboxyhemoglobin 3.10 H ABG Methemoglobin 0.7 Stephon Test NO A-a O2 Difference 81.0 Total Hemoglobin 9.7 L Lactate 1.90 Liter Flow 2.0 Blood Gas Modality CANNULA FiO2 % 28.0 Plasma Lactate 1.3 Urine Source Urine Color Urine Turbidity Urine pH Ur Specific [place] Urine Protein Ur Glucose (Stick) Ur Ketones (Stick) Urine Blood Urine Nitrite Urine Bilirubin Urobilinogen Dipstick Urine Leukocytes Urine WBC (Auto) Urine RBC (Auto) U Epithel Cells (Auto) Urine Bacteria (Auto) Orders Category Date Time [facility] Routine [id number] 03/31/19 18:00 Active Activity - Up with Assistance ORDERED Care 03/31/19 18:00 Active Cardiac Monitoring DIRECTED Care 03/31/19 10:36 Active Elevate Head of Bed DIRECTED Care 03/31/19 19:39 Active Encourage Fluids DIRECTED Care 03/31/19 19:39 Active FSBS/Accucheck Result AC + HS Care 03/31/19 18:00 Active IV Insertion ORDERED Care 03/31/19 10:36 Completed Intake and Output-Strict Q 8-HR ASSESS Care 03/31/19 19:39 Active Notify MD of + Sepsis Screen NOW Care 03/31/19 10:36 Active Notify Physician As Ordered Care 03/31/19 10:36 Active Nursing- Assist w/ IS as order ORDERED Care 03/31/19 19:39 Active Nursing- MD Consult Request ROUTINE Care 03/31/19 17:28 Active Turn, Cough and Deep Breathe Q2HR Care 03/31/19 19:39 Active Update & Confirm Home Medicati ROUTINE Care 03/31/19 18:02 Active Vital Signs Order Q 4-HR ASSESS Care 03/31/19 19:39 Active Z-Document. for Tele Applied ORDERED Care 03/31/19 19:39 Completed MD [Physician/Provider Consults] Routine Cons 03/31/19 17:27 Ordered Social Service Consult Routine Cons 03/31/19 19:39 Active Heart Healthy Diet Diet 03/31/19 18:00 Active CHEST-1 VIEW [RAD] Stat Exams 03/31/19 10:[address] THORAX W/CONTRAST [CT] Stat Exams 03/31/19 15:12 Completed ABG [RESP] Routine Lab 03/31/19 14:29 Completed BLOOD CULTURE [BLDCUL] Stat Lab 03/31/19 10:50 Results CBC WITH DIFF [HEME] Routine Lab 04/01/19 06:55 Completed CBC WITH DIFF [HEME] Stat Lab 03/31/19 10:50 Completed CK PROFILE [SP CHEM] Stat Lab 03/31/19 10:50 Completed COMPREHENSIVE METABOLIC PANEL [CHEM] Routine Lab 04/01/19 06:55 Completed COMPREHENSIVE METABOLIC PANEL [CHEM] Stat Lab 03/31/19 10:50 Completed LACTATE, PLASMA [CHEM] Lab 03/31/19 10:50 Completed LACTATE, PLASMA [CHEM] Lab 03/31/19 14:18 Completed LACTATE, PLASMA [CHEM] Lab 03/31/19 16:50 Completed PROTIME WITH INR [COAG] Stat Lab 03/31/19 10:50 Completed PTT [COAG] Stat Lab 03/31/19 10:50 Completed SPUTUM CULTURE WITH GRAM STAIN [RM] Routine Lab 03/31/19 18:25 Results TROPONIN T Stat Lab 03/31/19 10:50 Completed URINALYSIS W/POSS RFLX CULT [URINALYSIS] Stat Lab 03/31/19 11:44 Completed 0.9% Sodium Chloride Inj [Ns] 1,000 ml Med 03/31/19 14:01 Discontinued IV 999 mls/hr Acetaminophen [Tylenol] Med 03/31/19 18:00 Active 650 mg PO Q4H PRN PRN Albuterol 2.5MG/Ipratrop 0.5MG [Duoneb (A & A)] Med 03/31/19 14:10 Discontinued 3 ml INH NOW ONE Budesonide [Pulmicort] Med 03/31/19 14:10 Discontinued 0.5 mg INH NOW ONE Budesonide [Pulmicort] Med 03/31/19 19:30 Active 0.5 mg INH RTBID CefTRIAXONE [Rocephin] 1 gm Med 03/31/19 14:00 Discontinued 0.9% Sodium Chloride Inj [Ns] 50 ml IV NOW CefTRIAXONE [Rocephin] 1 gm Med 04/01/19 15:00 Active 0.9% Sodium Chloride Inj [Ns] 50 ml IV Q24H Dexamethasone [Decadron] Med 03/31/19 14:00 Discontinued 10 mg IV NOW ONE Enoxaparin [Lovenox] Med 03/31/19 18:00 Discontinued 40 mg SUBQ Q24H Insulin Human Regular [Humulin R] Med 03/31/19 21:00 Active See Protocol SUBQ 0700,1100,1600,2100 Ipratropium [place] Neb [Atrovent Neb] Med 03/31/19 19:30 Active 0.5 mg INH RTQ4H Levalbuterol Neb [Xopenex Neb] Med 03/31/19 19:30 Active 1.25 mg INH RTQ4H Aerosol Treatments Routine Ot 03/31/19 14:10 Completed Aerosol Treatments Routine Ot 03/31/19 14:10 Completed Aerosol Treatments Routine Ot 03/31/19 18:00 Completed Aerosol Treatments Stat Ot 03/31/19 14:10 Completed Aerosol Treatments Stat Ot 03/31/19 14:10 Completed Incentive Spirometer Routine Ot 03/31/19 19:39 Completed Oxygen Device Routine Ot 03/31/19 19:39 Completed Oxygen Device Stat Ot 03/31/19 10:36 Completed Pulse Oximetry Routine Ot 03/31/19 19:39 Completed Telemetry [OM.EQ] Routine Ot 03/31/19 19:39 Active EKG [EKG] Stat Ther 03/31/19 10:36 Draft Physical Therapy Eval/Treatment [OM.PT] Routine Ther 03/31/19 19:39 Active Transfer/Admit Order [TRANSFER] Routine Transfer 03/31/19 17:50 Completed Result Diagrams: 04/01/19 06:55 04/01/19 06:55 - REASSESSMENT Reassessment #1 Time Reassessed: 11:10 (dr leone at bedside) Status: unchanged (pt still c/o mild sob) Reassessment #2 Time Reassessed: 12:14 (dr leone at bedside) Status: improving (pt is resting in bed) Reassessment #3 Time Reassessed: 14:08 (dr leone at bedside) Status: worsening (pt is now wheezing on exam) - EKG 1 Time of EKG reading by physician:: 10:36 EKG Read and Signed by:: Raven Leone EKG Interpretation (*Must complete 3 of following elements*): Abnormal Rate: 109 Rhythm: afib with rvr [place]: normal QRS: LBB CA Interval: normal ST Wave: normal - XRAY 1 XRAY: Bilateral XRAY Study: Chest Impression: See EMR Report (CHEST-1 VIEW - 03/31/2019 INDICATION: R/O PNEUMONIA COMPARISON: 01/20/2019 FINDINGS: There is a skin fold over the right chest wall. Stable CABG changes. The lungs are clear. Heart size is normal. No pneumothorax or pleural effusion. IMPRESSION: Negative exam. Electronically signed by Rex Nance 03/31/2019 11:09 AM 03/31/19 1109 Interpreting Physician: Rex Nance MD Dictated Date/Time: 03/31/19 1108 cc: Raven Leone MD; None,PCP) - CONSULTS/PCP/HOSPITALIST Notification #1 *Consult/PCP/Hospitalist*: hospitalist Time Discussed: 15:10 Consult Disposition: Admit Departure - Departure Date of Disposition Decision: 03/31/19 Time of Disposition Decision: 16:00 DIAGNOSIS: COPD exacerbation, Tobacco use disorder Disposition: ADMITTED INPATIENT 09 Certified Medical Emergency: Emergent Condition: Stable - Critical Care Note This patient required my direct & personal management of CC.: Yes Total Time (mins): 37 Critical Care Statement: This patient required my direct personal management to treat or rule out processes, the absence of which, could potentiallly result in sudden, clinically significant life or limb threatening deterioration. Attestation - Physician/ SHAKEEL Attestation Patient care was provided by Advanced Practice Provider:: No The physician spent face to face time with patient:: Yes Advanced Practice Provider documentation review:: Supervising physician onsite and consulted in the evaluation and care of this patient. The physician did have a face to face encounter with the patient. This chart was documented by the indicated scribe, (Yara Pickens Scribe) and accurately reflects the services I performed and decisions made by me, Raven Leone MD, as attested by the provider's signature.
--- NOTE | 2019-03-31 15:49 | Diag Imaging Result Doc PS360 ---
EXAM: CT THORAX W/CONTRAST 03/31/2019 HISTORY: cough, possible pneumonia TECHNIQUE: This exam was performed using automated exposure control, adjustment of mA or kV according to patient size, and/or use of iterative reconstruction technique. COMMENT: There is a TAVR. There are are sternotomy wires. There are prominent prevascular and aorticopulmonary window nodes. This is actually somewhat less prominent than on the previous examination of 09/06/2017. There is also subcarinal adenopathy which is similar in appearance to the previous study. There is bilateral gynecomastia. The small pleural effusions which were present previously have largely resolved with an even smaller pleural fluid collection on the right remaining. There are apparent bilateral stents in the renal arteries. There is severe lumbar rotoscoliosis with convexity to the right. 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 These findings were apparently present previously. There is a groundglass opacity anteriorly in the right apex which was not present at the time the previous study. Some tree-in-bud opacities are present posteriorly in the right upper lobe which were not present previously. There are some scattered calcified granulomata which have not changed. There are coarse appearing opacities in the anterior right middle lobe and lingula which have worsened since the previous study. One of the opacities present in the right middle lobe anteriorly is somewhat nodular in appearance measuring over 11 mm. This was not clearly present previously. There is some bronchial thickening in the inferior right middle lobe around image 86. IMPRESSION: 1. The possibility of minimal pneumonia in the right upper lobe cannot be excluded. 2. New opacities in the right middle lobe. Advise follow-up in six months. Electronically signed by Brandt Jimenez 03/31/2019 3:46 PM
[2019-03-31] MEDS ORDERED: LOVENOX SUBQ SCH (18:00)
[2019-03-31] MEDS ORDERED: TYLENOL PO PRN (18:00)
[2019-03-31] MEDS: XOPENEX NEB INH SCH ×2 (19:30→23:43)
[2019-03-31] MEDS: PULMICORT INH SCH (19:30)
[2019-03-31] MEDS: ATROVENT NEB INH SCH ×2 (19:30→23:43)
[2019-03-31] MEDS ORDERED: KLONOPIN PO SCH (21:00)
[2019-03-31] MEDS ORDERED: BUSPAR PO SCH (21:00)
[2019-03-31] MEDS: MUCOMYST 20% INH SCH (21:26)
--- NOTE | 2019-03-31 21:50 | Diag Imaging Result Doc PS360 ---
EXAM: CT HEAD W/O CONTRAST 03/31/2019 HISTORY: encephalopathy TECHNIQUE: This exam was performed using automated exposure control, adjustment of mA or kV according to patient size, and/or use of iterative reconstruction technique. COMMENT: There is generalized cerebral atrophy. There is some patchy lucency in the periventricular white matter and a lacune is present in the upper basal ganglia region and external capsule on the right. This has not changed significantly since the previous examination of 01/20/2019. There is no evidence of mass effect bleed or abnormal extra-axial fluid collection. Overall compared to the previous examination the appearance of the brain has not changed significantly. There is bilateral maxillary sinusitis with air-fluid levels and mucosal thickening which was not present on the previous study. There is also some ethmoid mucosal thickening bilaterally. The calvarium is intact. IMPRESSION: Sinusitis particularly in the maxillary sinuses. Chronic ischemic changes. No evidence of acute intracranial disease. Electronically signed by Brandt Jimenez 03/31/2019 9:47 PM
--- NOTE | 2019-03-31 22:00 | HISTORY AND PHYSICAL ---
ADDENDUM: I agree with most of history, physical, assessment and plan. In brief, Mr. Vo is a 78-year-old man with past medical history of coronary artery disease, atrial fibrillation, congestive heart failure, CVA, hypertension, diabetes mellitus type 2, depression, restless legs syndrome, chronic hypoxic respiratory failure who has been experiencing constitutional symptoms including sneezing, runny nose since last 2 weeks duration, which did not get better. So, he decided to go and see his lung doctor. He was found to have a fever of 101. He was sent to the emergency room. The patient's is at bedside. Currently, the patient appears very restless. VITALS EXAMINATION: He is afebrile. His pulse is 101, respiratory rate 14. He is normotensive. PHYSICAL EXAMINATION: LUNGS: No wheeze, rhonchi, or crackles. CARDIOVASCULAR: S1, S2 normal. Irregularly irregular. No murmur, rub, or gallop. ABDOMEN: Soft, nontender. NEUROLOGIC: He is alert, oriented, but restless. Answers most questions appropriately. ASSESSMENT AND PLAN: Acute bronchitis based on symptoms of worsening shortness of breath and cough without significant infiltrate on CT scan. I will follow up with sputum culture results. Blood culture results, urine antigens. I will also get influenza screen and CT scan head. Plan of care discussed with the patient and his . All of their questions have been answered. cc: Dano Hampton MD
--- NOTE | 2019-03-31 22:08 | HISTORY AND PHYSICAL ---
PRIMARY CARE PROVIDER: None. PEDIATRIC ACUTE CARE UNIT NURSE: Fadi Yee MD CHIEF COMPLAINT: Shortness of breath, productive of green phlegm. HISTORY OF PRESENT ILLNESS: Mr. Stefany Vo is a 78-year-old male with a medical history of COPD, congestive heart failure, chronic anemia, CAD with a CABG and stents, TAVR from aortic stenosis, paroxysmal atrial fibrillation who is here with complaints of shortness of breath and productive phlegm. He presented to Dr. Yee's office who then sent him here because it was felt that he probably had pneumonia. Here the chest x-ray did not show pneumonia, but the CT scan did. It was located in the right upper lobe and middle lobe. It also showed some new opacities in the right middle lobe as well. His white count was 11,000. ABGs look okay. There is really no other real significant lab abnormalities. He did have an EKG that showed atrial fibrillation with RVR, but during assessment of the bedside monitor, he has not converted back to a normal sinus rhythm, and he is on Eliquis for his atrial fibrillation. It is also noted he has got an ulcer on his left ankle. We will do a wound care consult from that, and we will consult Dr. Yee for the pulmonary nodules. PAST MEDICAL HISTORY: 1. COPD on 3 L home oxygen. 2. Congestive heart failure. 3. Chronic anemia. 4. Coronary artery disease with CABG and stent history 2013. 5. Aortic stenosis with open sternotomy after TAVR attempted, which was unsuccessful. 6. GERD. 7. Restless legs syndrome. 8. Gastritis. 9. Watermelon stomach. 10. Paroxysmal atrial fibrillation on Eliquis and aspirin. 11. Hypertension. 12. Stroke. 13. Hyperlipidemia. 14. Neuropathy. 15. Diabetes mellitus type 2. 16. Hypothyroidism. 17. Pulmonary artery hypertension. 18. Depression. SURGICAL HISTORY: 1. Left pinky toe hammertoe surgery. 2. CABG x3. 3. Cardiac stents in February of 2014 requiring stenting of his graft as well as an in-stent thrombosis. 4. TAVR re-sternotomy during that time. 5. Bilateral carotid endarterectomies, and the right one being performed twice. 6. Cervical fusion and lumbar surgeries with a total of 3 fusions. 7. Appendectomy. 8. Right fifth toe amputation. SOCIAL HISTORY: Two pack per day smoker since the age of 18. He quit in 1992 but resumed smoking again in the late 2018. Now he smokes 1 pack per day. He denies alcohol or illicit drug use. Lives at home with his . FAMILY HISTORY: Mother was anemic with cardiac problems but lived to age 94. Father had enlarged heart and lived to the age of 75. One brother had aortic valve replacement. Another 1 had a CABG. Sister had to have a CABG. Two brothers had cancer. One was thought to be esophageal but before they got the diagnosis. The other one had pancreatic cancer. ALLERGIES: Codeine, lisinopril, pramipexole. HOME MEDICATIONS: Have not yet been verified, but he is on Eliquis at home 5 mg twice a day. We will resume that. The other medications need to be confirmed or verified. They did say he was on some digoxin as well. REVIEW OF SYSTEMS: A 14-point review of systems are complete, and all were negative except for those mentioned in above HPI. PHYSICAL EXAMINATION: VITAL SIGNS: Temperature 98.5 degrees, heart rate 94, respiratory rate 18, blood pressure 145/53, O2 saturation 99% on 3 L nasal cannula. GENERAL: Mr. Stefany Vo is a 78-year-old male. He is very ill-appearing, but he is able to answer questions appropriately. HEENT: Atraumatic, normocephalic. Pupils equal, round, reactive to light. Extraocular movements intact. Mucous membranes are moist. NECK: Trachea midline. CARDIOVASCULAR: S1, S2. Regular rate and rhythm. No rubs, gallops, murmurs. Left lower extremity edema. +2 dorsalis pedal pulses, +2 radial pulses. Negative JVD or carotid bruits. PULMONARY: Inspiratory wheezes noted anterior and posteriorly with a prolonged expiration, tolerating 3 L nasal cannula. GASTROINTESTINAL: Soft, nontender, nondistended. Positive bowel sounds x4. EXTREMITIES: Moves all extremities equally with full range of motion. NEUROLOGICAL: A and O x3 decreased sensory in the lower extremities. SKIN: Warm, dry, intact except for left ankle, about a quarter-sized ulcer noted with very tough callused skin on the top of the foot. LABORATORY DATA: White blood cells 11,000, hemoglobin 10, hematocrit 32, platelet count 304,000, INR is 1.08. ABGs: pH 7.46, pCO2 36, pO2 74, bicarb 26, base excess 1.8, saturation 94%, lactate 1.9. Sodium 137, potassium 4.8, BUN 25, creatinine 0.9, glucose 114, calcium 8.9, bilirubin 0.26, AST 23, ALT 14, CK 54, troponin less than 0.01. Albumin is 4.1, lactate 2. 2.2, then 2.0 and then 1.3. Urinalysis is negative. IMAGING: Chest x-ray negative. Chest CT shows possibility of minimal pneumonia in the right upper lobe and in the middle lobe. New opacities in the right middle lobe. EKG: Atrial fibrillation with RVR rate, 109 kg. ASSESSMENT AND PLAN: 1. Community-acquired pneumonia in the right upper lobe and middle lobe with some new right middle lobe opacities, was sent from Dr. Yee's office. We will consult him. Started on Rocephin and Xopenex budesonide nebs and pulmonary toilet. Sputum for culture. Has a little leukocytosis with it. 2. Chronic obstructive pulmonary disease. No signs or symptoms of exacerbation, tolerating his 3 L of oxygen that he uses at home. 3. Left ankle ulcer we will consult Wound Care. 4. Atrial fibrillation with rapid ventricular response. Actually converted back to sinus rhythm while I was in the room. We will continue his home medications for that once they are verified. He is on Eliquis 5 mg twice a day. We will resume that. I believe he is on digoxin so we will get a digoxin level. 5. Diabetes mellitus type 2. We will do patterned blood glucoses, sliding scale insulin. 6. Hypothyroidism. Continue Synthroid once is verified. 7. Gastrointestinal reflux disease. 8. History of coronary artery bypass graft and aortic valve stenosis coronary disease, transcatheter aortic valve replacement. We will continue home medications for that. 9. Hypertension. 10. Deep venous thrombosis prophylaxis. We will continue his Eliquis. Dictated by CHERELLE Whiting for Dano Hampton MD cc: CHERELLE Whiting MD I agree with most components of history, physical, assessment and plan. A separate addendum has been dictated. [facility]
[2019-03-31] MEDS: ZITHROMAX PO SCH (22:33)
[2019-03-31] MEDS: ELIQUIS PO SCH (22:34)
[2019-03-31] MEDS: COREG PO SCH (22:34)
[2019-03-31] MEDS: HUMULIN R SUBQ SCH (22:35)
[2019-04-01] MEDS: ATROVENT NEB INH SCH ×6 (03:25→23:37)
[2019-04-01] MEDS: XOPENEX NEB INH SCH ×6 (03:25→23:37)
[2019-04-01] MEDS: HUMULIN R SUBQ SCH ×3 (06:19→17:12)
[2019-04-01] MEDS ORDERED: SYNTHROID PO SCH (07:00)
[2019-04-01 07:21] LABS: BASO# 0.01 X1000 (0.0-0.2); BASO% 0.1 % (0.0-0.8); HEMATOCRIT 30.6 % (42.0-52.0); HEMOGLOBIN 9.8 g/dL (14.0-18.0); LYMPH# 0.72 X1000 (1.2-3.4); LYMPH% 9.4 % (20.5-51.1); MCH 29.2 PG (27-31); MCV 91.1 FL (81-99); MONO# 0.42 X1000 (0.11-0.59); MONO% 5.5 % (1.7-9.3); MPV 10.6 FL (7.4-10.4); NEUT# 6.51 X1000 (1.4-6.5); PLT 298 X1000 (130-400); RBC 3.36 XMIL (4.7-6.1); RDW 13.8 % (11.5-14.5); WBC 7.66 X1000 (4.8-10.8)
[2019-04-01] MEDS: MUCOMYST 20% INH SCH ×2 (07:49→19:22)
[2019-04-01] MEDS: PULMICORT INH SCH ×2 (07:49→19:22)
--- NOTE | 2019-04-01 08:24 | EKG Report ---
Test Performed on : 04/01/2019 07:28:11 AM Test Reason : Follo up Heart rhythm Blood Pressure : / mmHG Vent. Rate : 089 BPM Atrial Rate : 089 BPM P-R Int : 188 ms QRS Dur : 092 ms QT Int : 392 ms P-R-T Axes : 074 015 100 degrees QTc Int : 476 ms Sinus rhythm. with marked sinus arrhythmia. with occasional premature ventricular complexes. Abnormal QRS-T angle, consider primary T wave abnormality Abnormal ECG When compared with ECG of 31-MAR-2019 10:36, (Unconfirmed) Sinus rhythm. has replaced Atrial fibrillation. Left bundle branch block is no longer present Confirmed by Tanisha LEWIS, Mj Ryder ([id number]) on 04/01/2019 8:36:46 AM
[2019-04-01 08:26] LABS: AGAP 12; ALB/GLOB RATIO 0.9; ALBUMIN 3.5 g/dL (3.5-5.0); ALKALINE PHOSPHATASE 106 U/L (32-122); BUN 32 mg/dL (8-22); CHLORIDE 103 mmol/L (98-107); COSMO 289; CREATININE 0.8 mg/dL (0.7-1.2); ESTIMATED GFR > 60; GLUCOSE 155 mg/dL (70-104); GOT 16 U/L (10-34); GPT 14 U/L (10-44); POTASSIUM 3.7 mmol/L (3.5-5.1); SODIUM 140 mmol/L (136-145); TCO2 25 mmol/L (25-35); TOTAL BILIRUBIN 0.18 mg/dL (0.20-1.00); TOTAL PROTEIN 7.4 g/dL (6.3-8.3)
[2019-04-01] MEDS ORDERED: LASIX PO SCH (09:00)
[2019-04-01] MEDS ORDERED: LANOXIN PO SCH (09:00)
[2019-04-01] MEDS: ELIQUIS PO SCH ×2 (09:05→20:51)
[2019-04-01] MEDS: COREG PO SCH ×2 (09:06→20:51)
[2019-04-01] MEDS: ZITHROMAX PO SCH (09:11)
[2019-04-01] MEDS: ROCEPHIN 1 GM in NS 50 ML IV SCH (14:05)
[2019-04-01] MEDS: SANTYL OINT TOP SCH (17:13)
[2019-04-01] MEDS: HYDROPHOR OINTMENT TOP SCH (17:14)
[2019-04-01] MEDS: TESSALON PO PRN (17:25)
[2019-04-01] MEDS ORDERED: NORVASC PO ONE (20:01)
--- NOTE | 2019-04-01 20:49 | PROGRESS NOTE ---
DATE: 04/01/2019 INTERVAL HISTORY: No acute events overnight. He is still coughing. His sputum culture has not shown any growth. I discussed with him about my exam findings and the fact that might have to keep him here until we get the final sputum results. He since presentation has not detected to have any fever. He is coughing during examination; however, otherwise he is better. OBJECTIVE: Vital Signs: He has been afebrile. Pulse is 96, respiratory rate 20, blood pressure 125/78. He is saturating 99% on room air. General: Does not appear in any acute distress. Oral cavity is moist. Lungs: Air entry bilaterally equal. No wheeze, rhonchi, or crackles. Cardiovascular: S1, S2 normal. Irregularly irregular. No murmur, rub or gallop. Abdomen: Soft, nontender. He is alert and oriented x3. LABORATORY DATA: Suggestive of resolution of leukocytosis, normocytic anemia, normal platelet count, essentially normal electrolytes. Digoxin level was less than 0.03. ASSESSMENT AND PLAN: 1. Right upper lobe pneumonia and likely acute bronchitis. Continue intravenous ceftriaxone and azithromycin. Follow up final sputum culture results. 2. Chronic obstructive pulmonary disease without acute exacerbation and chronic hypoxic respiratory failure. I will continue him on his home oxygen, give albuterol ipratropium nebulization and a cough suppressant as well as expectorant. 3. Left ankle ulcer. Wound consult has been provided. Atrial fibrillation with rapid ventricular response, currently normal sinus rhythm. We will continue him on Eliquis, carvedilol and digoxin. 4. Diabetes mellitus type 2. Continue sliding scale insulin. 5. Hypothyroidism. Continue Synthroid. 6. He does have history of coronary artery disease, coronary artery bypass graft, aortic valve stenosis and transcatheter aortic valve replacement in the past, which are currently stable. We will resume most of his home medications. DISPOSITION: Condition to monitor patient inside the hospital. Plan of care discussed with him and his . His questions have been answered. cc: Dano Hampton MD
[2019-04-01] MEDS: NEURONTIN PO SCH (20:50)
[2019-04-01] MEDS: MUCINEX PO SCH (20:51)
[2019-04-01] MEDS: ISORDIL PO SCH (20:55)
[2019-04-01] MEDS ORDERED: KLONOPIN PO SCH (21:00)
[2019-04-01] MEDS ORDERED: LIPITOR PO SCH (21:00)
--- NOTE | 2019-04-02 00:49 | CONSULTATION ---
DATE OF CONSULTATION: 04/01/2019 REQUESTING PROVIDER: CHERELLE Whiting. REASON FOR CONSULTATION: Pulmonary opacities, pneumonia, COPD. HISTORY OF PRESENT ILLNESS: This is a 78-year-old, male, with a medical history of COPD, tobacco abuse, congestive heart failure, chronic anemia, coronary artery disease, aortic stenosis, gastroesophageal reflux disease, restless legs syndrome, gastritis, watermelon stomach, paroxysmal atrial fibrillation, hypertension, stroke, hyperlipidemia, neuropathy, diabetes mellitus type 2, hypothyroidism, pulmonary arterial hypertension, and depression. He has been seen in our office since September 2017, with COPD. He presented to the ER yesterday morning, after visiting our office with possible pneumonia. CT of thorax with contrast showed possible minimal pneumonia in the right upper lobe; less prominent prevascular and aorticopulmonary window nodes; stable subcarinal adenopathy; pleural and parenchymal fibrosis in both apices; emphysematous change with blebs particularly in the right apex; new ground-glass opacity anteriorly in the right apex; and nodular-appealing opacity in the right middle lobe anteriorly measuring over 11 mm. He has been admitted to the medical floor for further evaluation and management. The patient currently is sitting on the edge of the bed with no acute distress noted. He is on nasal cannula at 3 L. The patient's at the bedside reported the patient has a productive cough and shortness of breath for over 1- 1/2 weeks. She also reported that at the beginning, both of them developed some sinus issue. She already got over it, but patient is getting worse, so they decided to go to see the doctor in our office. The patient apparently also developed some fever before office visit. He reports no chest pain, palpitation, nausea, vomiting, diarrhea, constipation, urination discomfort, wheezing, or pedal edema. The patient apparently had multiple skin lesions on his left lower extremity and bilateral upper extremities. 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 For the wound on his left leg, they apparently went to [facility], and has been treated with some medicine outpatient. PAST MEDICAL HISTORY: 1. COPD, apparently with ongoing tobacco abuse. PFT this January, showed moderate COPD with FEV1 77%. He is currently on ProAir and Breo at home. He reported he had to use ProAir daily recently. 2. Congestive heart failure. 3. Chronic anemia. 4. Coronary artery disease with CABG and stent placement in 2013. 5. Aortic stenosis with open sternotomy after TAVR attempted which was unsuccessful. 6. Gastroesophageal reflux disease. 7. Restless legs syndrome. 8. Gastritis. 9. Watermelon stomach. 10. Paroxysmal atrial fibrillation, on Eliquis and aspirin. 11. Hypertension. 12. History of stroke in 2018. No residual effect noted. 13. Hyperlipidemia. 14. Neuropathy. 15. Diabetes mellitus type 2. 16. Hypothyroidism. 17. Pulmonary arterial hypertension. 18. Depression. PAST SURGICAL HISTORY: Patient started smoking at the age of 18. He quit in 1992. He resumed smoking in late 2018, after stroke. Currently, he smokes 1 pack per day. He has no history of alcohol or illicit drug use. FAMILY HISTORY: Positive for heart disease, cancer. ALLERGIES: Codeine, lisinopril, pramipexole. REVIEW OF SYSTEMS: A 10-point review of systems was conducted and the pertinent is listed within the HPI, otherwise noncontributory. PHYSICAL EXAMINATION: Vital Signs: Temperature 98.7, blood pressure 158/68, pulse of 89, respiratory rate 16, oxygen saturation 95% on nasal cannula at 3 L. General: Chronically ill appearing, sitting on the edge of the bed with no acute distress noted. The patient's is at the bedside. HEENT: Atraumatic, normocephalic. Trachea midline. Mucosa pink and moist. Respiratory: Even and unlabored. Symmetrical excursion. Clear to auscultation bilaterally. Cardiovascular: S1 and S2 noted with irregularly irregular rate and rhythm. Gastrointestinal: Soft, nondistended, nontender. Bowel sounds normoactive in all 4 quadrants. Extremities: Multiple skin lesion noted on the left lower extremity and bilateral upper extremities. No pedal edema. No cyanosis. No clubbing. Dorsalis pedis diminished bilaterally. Neurologic: Alert and oriented x3. Speech fluent. Follows commands. LABORATORY DATA: White blood cells 7.66, hemoglobin 9.8, hematocrit 30.6, platelet 298,000. Sodium 140, potassium 3.7, chloride 103, carbon dioxide 25, BUN 32, creatinine 0.8, glucose 155. IMAGING DATA: See HPI. ASSESSMENT: This is a 78-year-old, male, with a medical history of chronic obstructive pulmonary disease with ongoing tobacco abuse, congestive heart failure, chronic anemia, coronary artery disease, aortic stenosis, restless legs syndrome, gastroesophageal reflux disease., Gastritis, watermelon stomach, paroxysmal atrial fibrillation, hypertension, stroke, hyperlipidemia, neuropathy, diabetes mellitus type 2, hypothyroidism, pulmonary arterial hypertension, and depression. He has been admitted to the medical floor with possible community- acquired pneumonia. 1. Acute hypoxic respiratory failure. 2. Community-acquired pneumonia. Preliminary sputum culture showed many gram- positive cocci so far. 3. Chronic obstructive pulmonary disease. No exacerbation. 4. Tobacco abuse. 5. New RML nodular opacities 11mm. PLAN: 1. Continue supplemental oxygen as needed. 2. Continue antibiotic and bronchodilators. 3. Follow up with final sputum culture and blood culture. Check x-ray and ABG if indicated. 4. Daily smoking cessation education. 5. For the nodular opacity in the right middle lobe, outpatient PET scan recommended. 6. Further recommendations pending hospital course. Thank you for the courtesy of this consult. Dictated by CHERELLE Valdivia for Fadi Yee MD cc: CHERELLE Valdivia MD [facility]
[2019-04-02] MEDS: PRILOSEC PO SCH ×2 (02:12→10:02)
[2019-04-02] MEDS: HUMULIN R SUBQ SCH ×4 (02:12→17:35)
[2019-04-02] MEDS: XOPENEX NEB INH SCH ×4 (03:28→16:34)
[2019-04-02] MEDS: ATROVENT NEB INH SCH ×4 (03:28→16:33)
[2019-04-02] MEDS: TESSALON PO PRN (06:17)
[2019-04-02] MEDS ORDERED: BREO ELLIPTA 100/25 MCG INH INH SCH (07:30)
[2019-04-02] MEDS: MUCOMYST 20% INH SCH (07:40)
[2019-04-02] MEDS ORDERED: LANOXIN PO SCH (09:00)
[2019-04-02] MEDS ORDERED: SYNTHROID PO SCH (09:00)
[2019-04-02] MEDS ORDERED: ASPIRIN EC PO SCH (09:00)
[2019-04-02] MEDS ORDERED: BUSPAR PO SCH (09:00)
[2019-04-02] MEDS ORDERED: VITAMIN C PO SCH (09:00)
[2019-04-02] MEDS ORDERED: NORVASC PO SCH (09:00)
[2019-04-02] MEDS ORDERED: LASIX PO SCH (09:00)
[2019-04-02] MEDS ORDERED: VITAMIN B-12 PO SCH (09:00)
[2019-04-02] MEDS: MUCINEX PO SCH (09:58)
[2019-04-02] MEDS: ISORDIL PO SCH (09:59)
[2019-04-02] MEDS: NEURONTIN PO SCH (09:59)
[2019-04-02] MEDS: ELIQUIS PO SCH (09:59)
[2019-04-02] MEDS: ZITHROMAX PO SCH (10:00)
[2019-04-02] MEDS: COREG PO SCH (10:01)
[2019-04-02] MEDS: SANTYL OINT TOP SCH (10:02)
[2019-04-02] MEDS ORDERED: TESSALON PO PRN (10:47)
[2019-04-02] MEDS: PULMICORT INH SCH (11:27)
[2019-04-02 12:35] VITALS: BP 139/70
[2019-04-02] MEDS: HYDROPHOR OINTMENT TOP SCH (14:24)
[2019-04-02] MEDS: ROCEPHIN 1 GM in NS 50 ML IV SCH (16:21)
--- NOTE | 2019-04-03 14:05 | DISCHARGE SUMMARY ---
ADMISSION DATE: 03/31/2019 DISCHARGE DATE: 04/02/2019 DISCHARGE DISPOSITION: Home with family. DISCHARGE CONDITION: Hemodynamically stable. He is alert and oriented x3. He is no longer short of breath, though he does have frequent coughing spells. CONSULTATIONS DURING HOSPITAL ADMISSION: Dr. Yee, pulmonology. DISCHARGE DIAGNOSES: 1. Right upper lobe pneumonia versus acute bronchitis. 2. Chronic obstructive pulmonary disease without acute exacerbation. 3. Chronic hypoxic respiratory failure on home oxygen. 4. Left ankle ulcer. 5. History of atrial fibrillation with rapid ventricular rate. 6. History of diabetes mellitus type 2, non-insulin dependent. 7. Hypothyroidism. 8. Acute encephalopathy 9. Left ankle wound OTHER DIAGNOSES: 1. History of coronary artery disease requiring CABG. 2. History of aortic valve stenosis requiring transcatheter aortic valve replacement. 3. History of restless legs syndrome. 4. Essential hypertension. 5. Peripheral neuropathy. 6. Pulmonary artery hypertension. DISCHARGE MEDICATIONS: Apixaban 5 mg b.i.d., atorvastatin 40 mg at nighttime, amlodipine 10 mg daily, aspirin 81 mg daily, Breo Ellipta 1 puff inhaled daily, buspirone 1 tablet in the morning time, carvedilol 6.25 mg b.i.d., digoxin 0.125 mg daily, cyclobenzaprine 10 mg b.i.d., gabapentin 200 mg b.i.d., glipizide 10 mg b.i.d., iron 45 mg daily, isosorbide dinitrate 20 mg b.i.d., furosemide 40 mg daily, metformin 1000 mg b.i.d., multivitamin 1 tablet daily, omeprazole 40 mg b.i.d., albuterol sulfate 1 puff inhaled as needed for shortness of breath. Levothyroxine 175 mcg daily. Venlafaxine 300 mg daily, vitamin B12 1000 mcg daily, ascorbic acid 1 tablet daily, clonazepam 0.5 mg at nighttime, guaifenesin 200 mg every 12 hours, 15 tablets have been prescribed. Hydrophor ointment 1 jar has been prescribed. Lidocaine patch 1 patch topical daily. Benzonatate 100 mg every 4 hours as needed for cough, 20 capsules have been prescribed. Azithromycin 500 mg daily, 6 tablets have been prescribed. VITALS: At the time of discharge, temperature 99.4 degrees, pulse 84, respiratory 16, blood pressure 140/70, saturating 98% on room air. PHYSICAL EXAMINATION: General: Does not appear in acute distress except when he coughs. Oral cavity is moist. Air entry bilaterally equal. No wheeze, rhonchi, crackles. S1, S2 normal. No murmur or gallop. Abdomen: Soft, nontender. His heart rhythm is irregularly irregular. No lower extremity edema. He is alert and oriented x3. SIGNIFICANT LABS: During hospital admission and discharge on admission, he had WBC [id number] which improved to 7000 at discharge, hemoglobin 9.8, platelet of 298,000. Potassium is 3.7, sodium 140, BUN 32, creatinine 0.8, blood sugar 118. His calcium is 9. His digoxin level was less than 0.3. His urine streptococcal and Legionella antigen are negative. Significant microbiology during hospital admission, blood culture, influenza screen and sputum culture are negative so far. SIGNIFICANT IMAGING: Chest CT on admission had possibility of minimal pneumonia in the right upper lobe. A new opacity in the right middle lobe in which follow-up in 6 months was recommended. HOSPITAL COURSE SUMMARY: Mr. Vo is a 78-year-old man with past medical history of chronic obstructive pulmonary disease on home oxygen, who went to his cardiovascular radiologic technologist's office where he started coughing and was noticed to have a fever of 101, so was advised to come to the emergency room for possible pneumonia. In the hospital emergency room, he was found to have leukocytosis and CT scan finding of possible right upper lobe pneumonia, so he was admitted for need for intravenous antibiotics considering his tachycardia and leukocytosis. With the antibiotic, he started feeling better. He was no longer short of breath. Though he did have persistent cough, it was thought to be related to bronchitis and he was given cough suppressants. On admission, there was also concern about him feeling very confused on arrival which was his 's concern for which head CT was done which was unremarkable. However, at the time of discharge, he is at his baseline. TIME SPENT: More than 30 minutes spent discharging the patient. Plan of care extensively discussed with the patient. cc: MD YANY Stoll
== END 2019-04-02 18:22 | disposition home or self-care (01) | DRG 190 ==
LOC: ED 10:27 → EDIPHOLD 18:41 → 3N 20:30
PROVIDERS: ATTEND Internal Medicine